=== PATIENT | male | born 1990 | race African-American/Black ===

== ENCOUNTER 2018-10-07 17:16 | Emergency (ER) | payer BC ==
[~2018-10-07] VITALS: Ht 185.4 cm; Wt 65.0 kg
[2018-10-07 18:13] VITALS: BP 116/84
== END 2018-10-08 00:16 | disposition left against medical advice (07) ==
LOC: ER 17:16
DX: Z53.21 Procedure and treatment not carried out due to patient leaving prior to being seen by health care provider (principal)

== ENCOUNTER 2018-11-14 02:46 | Inpatient (IN) | payer BC ==
[~2018-11-14] VITALS: Ht 185.4 cm; Wt 63.0 kg
[2018-11-14 07:21] LABS: BASOPHILS % 0.6 % (0.0-2.0); EOSINOPHILS % 1.2 % (0.0-5.0); HEMATOCRIT. 36.9 % (42.0-52.0); HEMOGLOBIN. 12.6 g/dL (14.0-18.0); LYMPHOCYTES % 26.8 % (20.0-50.0); MEAN CORPUSCULAR HEMOGLOBIN 29.4 pg (28.0-32.0); MEAN PLATELET VOLUME 8.6 fl (7.4-10.4); NEUTROPHILS % 62.4 % (40.0-76.0); PLATELET 195 x1000/uL (130-400); RED BLOOD CELL COUNT 4.29 mill/uL (4.7-6.1); RED CELL DISTRIBUTION WIDTH 13.1 % (11.6-14.6)
[2018-11-14] MEDS ORDERED: ASPIRIN 325MG EC TABLET PO ONE (07:30)
[2018-11-14 07:33] LABS: CHLORIDE 108 mEq/L (98-107)
[2018-11-14 07:40] LABS: CLARITY URINE CLEAR (CLEAR); COLOR URINE YELLOW (YELLOW); KETONES URINE TRACE (NEGATIVE); LEUKOCYTE ESTERASE URINE NEGATIVE (NEGATIVE); NITRITE URINE NEGATIVE (NEGATIVE); OCCULT BLOOD URINE NEGATIVE (NEGATIVE); PH URINE 6.5 (4.5-8.0); PROTEIN URINE NEGATIVE (NEGATIVE)
[2018-11-14] MEDS ORDERED: MAGNESIUM/ALUMINUM HYDROXIDE/SIMETHICONE 30ML UDC PO PRN (10:30)
[2018-11-14] MEDS ORDERED: ONDANSETRON HCL 4MG/2ML INJ IV PRN (10:30)
[2018-11-14] MEDS ORDERED: CLONIDINE 0.1MG TABLET PO PRN (10:30)
[2018-11-14] MEDS ORDERED: DIPHENHYDRAMINE 50MG/ML VIAL IV PRN (10:30)
[2018-11-14] MEDS ORDERED: HYDROCODONE/ACETAMINOPHEN 5/325MG TABLET PO PRN (10:30)
[2018-11-14] MEDS ORDERED: DOCUSATE SODIUM 100MG CAPSULE PO PRN (10:30)
[2018-11-14] MEDS ORDERED: IPRATROPIUM/ALBUTEROL 0.5-3(2.5)MG/3ML NEB INH PRN (10:30)
[2018-11-14] MEDS ORDERED: LORAZEPAM 2MG/ML CPJ IV PRN (10:30)
[2018-11-14] MEDS ORDERED: MORPHINE SULFATE 4 MG/ML CPJ (NOT FOR IM USE) IV PRN (10:30)
[2018-11-14] MEDS ORDERED: ACETAMINOPHEN 325MG TABLET PO PRN (10:30)
[2018-11-14] MEDS ORDERED: NA PHOS,M-B/NA PHOS,DI-BA ENEMA 118ML PR PRN (10:30)
[2018-11-14] MEDS ORDERED: GUAIFENESIN 200MG/10ML SUGAR FREE UDC PO PRN (10:30)
[2018-11-14] MEDS ORDERED: ENOXAPARIN 40MG/0.4ML SYR SUBCUT NR (10:45)
[2018-11-14] MEDS: SODIUM CHLORIDE 0.45% 1,000 ML IV SCH ×2 (11:30→18:02)
[2018-11-14 17:10] VITALS: BP 124/81
[2018-11-14] MEDS ORDERED: INFLUENZA VIRUS VACCINE(AFLURIA) 0.5ML SYR IM ONE (17:30)
[2018-11-14 20:00] VITALS: BP 109/61
[2018-11-14 21:09] LABS: CHLORIDE 106 mEq/L (98-107)
[2018-11-15] VITALS: BP 108/60
[2018-11-15 01:44] LABS: *AMPHETAMINES SCREEN URINE NEGATIVE (NEGATIVE); *BARBITURATES SCREEN URINE NEGATIVE (NEGATIVE)
[2018-11-15 01:46] LABS: *BENZODIAZEPINES SCREEN URINE NEGATIVE (NEGATIVE); *COCAINE SCREEN URINE NEGATIVE (NEGATIVE); CANNABINOID URINE SCREEN NEGATIVE (NEGATIVE); METHADONE URINE SCREEN NEGATIVE (NEGATIVE); OPIATES URINE SCREEN NEGATIVE (NEGATIVE); PHENCYCLIDINE URINE SCREEN NEGATIVE (NEGATIVE)
[2018-11-15 04:00] VITALS: BP 101/56
[2018-11-15] MEDS: SODIUM CHLORIDE 0.45% 1,000 ML IV SCH (06:16)
[2018-11-15 07:09] LABS: BASOPHILS % 0.5 % (0.0-2.0); EOSINOPHILS % 1.9 % (0.0-5.0); HEMATOCRIT. 36.3 % (42.0-52.0); HEMOGLOBIN. 12.2 g/dL (14.0-18.0); MEAN CORPUSCULAR HEMOGLOBIN 29.1 pg (28.0-32.0); MEAN CORPUSCULAR VOLUME 86.8 fL (80.0-94.0); MEAN PLATELET VOLUME 8.2 fl (7.4-10.4); NEUTROPHILS % 41.6 % (40.0-76.0); PLATELET 171 x1000/uL (130-400); RED BLOOD CELL COUNT 4.18 mill/uL (4.7-6.1); RED CELL DISTRIBUTION WIDTH 13.1 % (11.6-14.6)
[2018-11-15 07:27] LABS: CHLORIDE 108 mEq/L (98-107)
[2018-11-15 07:39] LABS: LDL CHOLESTEROL 75 mg/dL (5-100)
[2018-11-15 07:41] LABS: HDL CHOLESTEROL 78 mg/dL (40-59); T4 FREE 1.03 ng/dL (0.76-1.46)
[2018-11-15 08:00] VITALS: BP 105/60
[2018-11-15 08:54] VITALS: BP 105/60
[2018-11-15] MEDS ORDERED: ASPIRIN 81MG EC TABLET PO SCH (09:00)
[2018-11-15] MEDS ORDERED: ENOXAPARIN 40MG/0.4ML SYR SUBCUT SCH (10:30)
== END 2018-11-15 09:17 | disposition home or self-care (01) | DRG 310 ==
LOC: ER 02:46 → 8WST 10:24 → EDBEDREQ 10:27 → ENRESERV 15:30
PROVIDERS: ADMIT Internal Medicine; ATTEND Internal Medicine
DX: I44.0 Atrioventricular block, first degree (principal); R00.2 Palpitations; R00.1 Bradycardia, unspecified; E86.0 Dehydration; F17.210 Nicotine dependence, cigarettes, uncomplicated; Z88.1 Allergy status to other antibiotic agents
CPT/HCPCS: 36415; 71045; 80048; 80061; 80305; 83735; 83880; 84439; 84443; 84484; 90686; 93005; 93306; 96360; 96372; 99285; J1650

== ENCOUNTER 2019-03-06 15:54 | Emergency (ER) | payer BC ==
[~2019-03-06] VITALS: Ht 182.9 cm; Wt 75.0 kg
[2019-03-06] MEDS ORDERED: SODIUM CHLORIDE 0.9% 1,000 ML IV ONE (16:26)
[2019-03-06 16:36] LABS: BASOPHILS % 0.6 % (0.0-2.0); EOSINOPHILS % 0.8 % (0.0-5.0); HEMATOCRIT. 36.2 % (42.0-52.0); HEMOGLOBIN. 12.3 g/dL (14.0-18.0); MEAN CORPUSCULAR HEMOGLOBIN 29.4 pg (28.0-32.0); MEAN CORPUSCULAR VOLUME 86.4 fL (80.0-94.0); MEAN PLATELET VOLUME 7.8 fl (7.4-10.4); MONOCYTES % 9.7 % (2.0-8.0); NEUTROPHILS % 54.9 % (40.0-76.0); PLATELET 198 x1000/uL (130-400); RED BLOOD CELL COUNT 4.18 mill/uL (4.7-6.1); RED CELL DISTRIBUTION WIDTH 13.9 % (11.6-14.6)
[2019-03-06 16:40] LABS: CHLORIDE 105 mEq/L (98-107)
[2019-03-06 17:49] VITALS: BP 119/77
== END 2019-03-06 17:52 | disposition home or self-care (01) ==
LOC: ER 15:54
DX: R07.89 Other chest pain (principal)
CPT/HCPCS: 36415; 71045; 80053; 85025; 85044; 93005; 99284; J7030